=== PATIENT | male | born 1930 | race Caucasian/White ===

== ENCOUNTER → 2017-11-11 | Outpatient (CLI) | payer OTHER, BC ==
[~2017-11-11] MED LIST: ASPEC81 PO; CMD25 PO; OMEG10007 PO; PRCUNK PO; SIMV40TA2 PO; [UNRECOGNIZED DRUG - OTHER] PO
--- NOTE | 2017-11-11 12:56 | DIAGNOSTIC IMAGING REPORT ---
(TESTICULAR) SCROTUM-CONT CLINICAL HISTORY: 87 years-old Male with R31.0 Gross hematuria. Acute hematuria COMPARISON STUDY: None available TECHNIQUE: Real-time, grayscale, and color Doppler sonography of the testes and scrotum is performed. Images are reviewed in the transverse and longitudinal planes. FINDINGS: RIGHT HEMISCROTUM: The right testis measures 3.7 x 2.1 x 2.3 cm and the parenchyma appears unremarkable. No intratesticular mass is seen. Normal-appearing arterial inflow is present within the right testicle. Epididymal head cysts are noted measuring less than 3 mm. No varicocele or hydrocele is identified. LEFT HEMISCROTUM: The left testis measures 2.8 x 2.0 x 2.4 cm and the parenchyma appears unremarkable. No intratesticular mass is seen. Normal-appearing arterial inflow is present within the left testicle. The left epididymal body and tail appears enlarged, heterogeneous and hyperemic. No varicocele or hydrocele is identified. IMPRESSION: 1. Findings compatible with acute left-sided epididymitis. 2. No varicocele or hydrocele. 3. Unremarkable sonographic appearance of the bilateral testicles. The above report was generated using voice recognition software. It may contain grammatical, syntax or spelling errors. Electronically signed by: Sharan Marrero M.D. 11/11/2017 12:55 PM Dictated Date/Time: 11/11/2017 12:53 PM
== END | disposition home or self-care (01) ==
LOC: C.ULTRBC 12:25
PROVIDERS: ATTEND Urology
DX: R31.0 Gross hematuria (principal)